=== PATIENT | female | born 1945 | race Caucasian/White ===

== ENCOUNTER 2017-01-11 10:37 | Outpatient (CLI) | payer OTHER ==
[2014-04-22 09:42] VITALS: BP 137/78
[2017-01-11 11:02] LABS: BASOPHILS % 0.4 (0.0-1.5); MEAN CORPUSCULAR HEMOGLOBIN 27.3 pg (28.0-34.0); MEAN CORPUSCULAR VOLUME 86.4 fl (80.0-100.0); MONOCYTES % 4.6 % (0.0-11.0); NEUTROPHILS # 3.4 # k/uL (1.4-7.7)
[2017-01-11 11:21] LABS: eGFR (African) > 60; eGFR (Non-African) > 60
== END 2017-01-11 10:40 ==
LOC: LAB 10:37
PROVIDERS: ATTEND Family Medicine
DX: E78.5 Hyperlipidemia, unspecified (principal); I10 Essential (primary) hypertension
CPT/HCPCS: 36415; 80053; 80061; 85025

== ENCOUNTER 2017-06-30 09:47 | Outpatient (CLI) | payer OTHER ==
[2014-04-22 09:42] VITALS: BP 137/78
[2017-06-30 10:38] LABS: eGFR (African) > 60; eGFR (Non-African) > 60
== END 2017-06-30 09:50 ==
LOC: LAB 09:47
PROVIDERS: ATTEND Physician Assistant
DX: R79.89 Other specified abnormal findings of blood chemistry (principal); Z87.448 Personal history of other diseases of urinary system
CPT/HCPCS: 36415; 80048

== ENCOUNTER 2018-01-25 11:47 | Outpatient (CLI) | payer OTHER ==
[2014-04-22 09:42] VITALS: BP 137/78
[2018-01-25 17:48] LABS: eGFR (Non-African) > 60
== END 2018-01-25 11:50 ==
LOC: LAB 11:47
PROVIDERS: ATTEND Family Medicine
DX: E78.2 Mixed hyperlipidemia (principal)
CPT/HCPCS: 36415; 80053; 80061

== ENCOUNTER 2018-02-01 12:49 | Outpatient (CLI) | payer OTHER ==
[2014-04-22 09:42] VITALS: BP 137/78
--- NOTE | 2018-02-02 09:22 | Diagnostic Imaging Report ---
LYNDA FERNÁNDEZ [facility] [address] [facility] [address] [address] Report Submission Date: Feb 02, 2018 8:40:34 AM CREDIT COMPLIANCE OFFICER Patient Study Name: TRINH TOSCANO Date: Feb 02, 2018 6:49:00 AM CREDIT COMPLIANCE OFFICER Modality Type: US Gender: M Description: US RUQ : [birth year] Institution: [facility] Physician: LYNDA FERNÁNDEZ Examination: Ultrasound right upper quadrant. History: Epigastric discomfort Findings: Sonographic evaluation of the right upper quadrant demonstrates the gallbladder without stones or sludge. Gallbladder wall measures 2.8 mm. Common bile duct measures 3.6 mm. No intrahepatic biliary dilation. Liver demonstrates normal homogeneous echogenicity. No mass or cyst. Normal flow on color analysis. Normal portal vein Doppler waveform. Right kidney measures 11.7 cm in length. No cortical mass or cyst. No hydronephrosis. Pancreatic region without gross irregularity. Impression: No gallstone or obstruction. Unremarkable abdominal ultrasound. Electronically signed on Feb 02, 2018 8:40:34 AM CREDIT COMPLIANCE OFFICER by: Ramon TURNER
== END 2018-02-01 12:54 | disposition home or self-care (01) ==
LOC: RAD 12:49
PROVIDERS: ATTEND Family Medicine
DX: Z78.0 Asymptomatic menopausal state (principal)
CPT/HCPCS: 77080

== ENCOUNTER 2018-06-07 14:17 | Outpatient (CLI) | payer OTHER ==
[2014-04-22 09:42] VITALS: BP 137/78
--- NOTE | 2018-06-07 15:48 | Diagnostic Imaging Report ---
<p>Your browser does not support iframes.</p> LYNDA FERNÁNDEZ [place] [id number] [facility] [address] [place] [address]. [id number] Report Submission Date: Jun 07, 2018 3:12:23 PM CDT Patient Study Name: HUSSEIN ALVARADO Date: Jun 07, 2018 2:34:51 PM CDT Modality Type: DX Gender: F Description: C SPINE 2 OR 3 VIEWS : 49 Institution: [facility] Physician: LYNDA FERNÁNDEZ Examination: Cervical spine History: C-SPINE,PAIN X1 YEAR, LEFT SIDE, NO KNONW INJURY, PT STATES HX OF ARTHRITIS Comparison exams: None available Findings: 5 views of the cervical spine demonstrates osteopenia. Degenerative spurring and disc space narrowing. No anterior compression deformity. Facet degenerative changes. Odontoid view without gross irregularity. No soft tissue abnormality. Impression: Osteopenia and degenerative changes. No acute appearing osseous abnormality Electronically signed on Jun 07, 2018 3:12:23 PM CDT by: Ramon TURNER
== END 2018-06-07 14:19 ==
LOC: RAD 14:17
PROVIDERS: ATTEND Family Medicine
DX: M85.88 Other specified disorders of bone density and structure, other site (principal); M47.892 Other spondylosis, cervical region; M54.2 Cervicalgia
CPT/HCPCS: 72040

== ENCOUNTER 2018-06-28 08:53 | Outpatient (CLI) | payer OTHER ==
[2014-04-22 09:42] VITALS: BP 137/78
--- NOTE | 2018-06-30 17:02 | CONSULTATION REPORT ---
HISTORY OF PRESENT ILLNESS: Patient is a 73-year-old female who presents to the [facility] pain clinic for evaluation of chronic neck pain. She was referred by her primary care physician, Dr. Gloria Oglesby MD. Patient reports having neck pain since the summer of 2017. She denies any trauma at that time, but she states that her pain began around the same time that she was getting physical therapy after having had a total knee arthroplasty surgery. She thinks that some of the exercise she was doing at physical therapy may have been the cause of her neck pain. She denies any cervical spine surgery or interventional procedures. She denies having physical therapy for her neck. Specifically, she did see a chiropractor about 6 times for her neck pain, but she denies any pain relief from those sessions. She denies any other treatment modalities for her neck pain. She has tried tramadol in the past but stopped it because it was causing pruritis. She also tried tizanidine but discontinued it because it was not helping. Currently she is only taking over the counter Tylenol. She did have recent MRI of the neck which shows multilevel disease with multiple subluxations and degenerated discs seen throughout (see details below). However, patient did not have a CD with images of the MRI so I was not able to read the MRI for myself, but I do have the report below. Neck pain is described as intermittent, dull, achy, and spams in character rated 8/10 at the worst but can be 0/10 at the best. Pain is located in the posterior aspect of the neck much worse on the left and only mild on the right extending from the occiput of the cranium to the C7 level with radiation to the upper trapezius muscle and periscapular region bilaterally, again worse on the left. She denies any pain radiation into the bilateral upper extremities. She denies weakness, numbness, or tingling in the upper extremities. She denies bowel or bladder incontinence. Pain is worse with cervical flexion, cervical extension, tilting or rotating of the neck and overhead activities. Pain improves with rest and spcc-srs-xplaift Tylenol. PAST MEDICAL HISTORY: PMH was reviewed and is shown in detail in the medical chart. Past family history, social history also reviewed and shown in detail in the medical chart. REVIEW OF SYSTEMS: A 14-point review of systems was performed and was positive for neck pain as described above in HPI. Otherwise was negative for all other systems. PHYSICAL EXAM: Vitals: Blood pressure 137.71, pulse 68, respirations 16. Temperature 97.2 degrees Fahrenheit. O2 saturation is 97% on room air. General: The patient is alert and oriented x4 in no acute distress. Patient ambulated into clinic without assistive device. Gait is nonantalgic. HEEENT: Pupils are equal and reactive to light and accommodation. Extraocular muscles intact. Cardiovascular: Regular rate and rhythm. No murmurs, rubs or gallops. Pulmonary: Lungs are clear to auscultation bilaterally. Abdomen: Soft nontender, nondistended. No hepatosplenomegaly. : Deferred. Skin: No rashes or lesions observed. Musculoskeletal: Neck: Cervical spine range of motion is decreased in flexion, extension, lateral rotation and side bending, worse to the left. There is tenderness to palpation at the cervical spinous processes and bilateral paraspinal muscles as well as bilateral upper trapezius muscles. Negative Spurlings but does cause axial neck pain. Neurologic: Cranial nerves II-XII are grossly intact. Deep tendon reflexes are 2+/4 at bilateral biceps, brachial radialis and triceps tendons. Manual muscle testing shows strengths of 5/5 in bilateral upper extremities for shoulder abduction, shoulder flexion, elbow flexion, elbow extension, wrist extension, finger flexion and finger abduction. Sensation to light touch is intact in bilateral upper extremities and all dermatomes symmetrically. Hoffmans is negative bilaterally. Spurlings is negative bilaterally. No clonus or fasciculation observed. RADIOLOGY: MRI cervical spine without contrast exam date 06/12/18. Impression: Multilevel disease seen as mentioned below with multiple subluxations and degenerated discs seen throughout. Findings: There is a grade 1 anterolisthesis of C3 on C4 and C4 on C5 with degenerated discs and disc space height loss at C5-6 and C6-7 with anterior spondylosis. There is grade 1 anterolisthesis of C7 on T1, T1 on T2 and T2 on T3. Paravertebral soft tissues are unremarkable, marrow signal normal. On triaxial images at C2-3 there is a central disc protrusion present that extends into the anterior neural canal. The neural foramen is patent. At C3-4 there is mild narrowing of the neural canal with anterolisthesis. The neural foramen is patent. At C4-5 left uncovertebral and right smaller uncovertebral spurring is seen with mild narrowing of the neural foramen. At C5-6 posterior diffuse disc bulge and spur is seen with the neural foramen patent. At C6-7 there is no neural canal or neural foraminal stenosis. C6-T1 there is no neural canal or neural foraminal stenosis or focal disc protrusion. At T1-2 there is a small left paracentral disc protrusion that effaces the core. The neural foramen is patent. ASSESSMENT: 1. Chronic neck pain/cervicalgia. 2. Cervical dystonia. 3. Torticollis and lateral yolanda. 4. Cervical facet arthropathy. 5. Cervical spondylolisthesis at multiple levels (C3 on C4 and C4 on C5). 6. Cervical degenerative disc disease at C5-6 and C6-7. 7. Cervical anterolisthesis C7 on T1, T1 on T2, and T2 on T3. 8. Cervical neural foraminal stenosis multilevel due to disc protrusions as seen on MRI. PLAN: 1. While patients MRI does show cervical spondylosis, spondylolisthesis and stenosis, the patients physical exam presentation is most consistent with muscular pain due to cervical dystonia with torticollis and lateral yolanda. My recommendation is that initial treatments focus on treatment of the cervical dystonia and in my experience the best treatment for that are Botox injections. If Botox injections do not provide good pain relief for the patient, then I would consider interventional procedures such as cervical facet steroid injections or cervical epidurals. 2. Schedule Botox injections using EMG guidance for treatment of cervical dystonia to be performed at [facility] in [facility], for next available. 3. Cervical spine x-rays to be obtained including AP, lateral, obliques, flexion and extension views. 4. Continue over the counter pain medications as indicated. Carlos Abbott M.D. (Dictated/Not Signed) Constantino Job#: [id number] cc: MD YUE Leblanc
== END 2018-06-28 08:55 ==
LOC: OUT 08:53
PROVIDERS: ATTEND Physical Medicine & Rehabilitation
DX: G24.3 Spasmodic torticollis (principal); M12.88 Other specific arthropathies, not elsewhere classified, other specified site; M43.12 Spondylolisthesis, cervical region; M50.322 Other cervical disc degeneration at C5-C6 level; M99.81 Other biomechanical lesions of cervical region; M50.20 Other cervical disc displacement, unspecified cervical region
CPT/HCPCS: 99214; G0463

== ENCOUNTER 2019-02-05 14:33 | Outpatient (CLI) | payer OTHER ==
[2014-04-22 09:42] VITALS: BP 137/78
[2019-02-05 14:48] LABS: BASOPHILS % 0.8 % (0.0-1.5); NEUTROPHILS # 5.3 # k/uL (1.4-7.7)
[2019-02-05 15:15] LABS: HDL 68 mg/dL (>40); eGFR (Non-African) > 60
== END 2019-02-05 14:38 ==
LOC: LAB 14:33
PROVIDERS: ATTEND Family Medicine
DX: E78.2 Mixed hyperlipidemia (principal); M79.604 Pain in right leg; M79.89 Other specified soft tissue disorders
CPT/HCPCS: 36415; 80053; 80061; 84443; 85025